=== PATIENT | female | born 1935 | race Caucasian/White ===

== ENCOUNTER → 2017-12-16 | Outpatient (CLI) | payer MEDICARE, BC ==
[~2017-12-16] MED LIST: ACETAMINOPHEN-1 EAC1 PO; ASPIR 8181 MG PO; COLESTID1 GM PO; LEVOTHYROXINE100 MC1 PO; MACULAR HEALTH1 EACH PO; MIDODRINE HCL 55 M1 PO; PROPAFENONE 15150 MG PO; PROTONIX40 M1 PO; RANEXA500 MG PO; ROPINIROLE HCL2 M1 PO; SYNTHROID100 MC1 PO; TRAMADOL 50 MG50 MG PO
[2017-12-16 13:01] LABS: CREATININE 1.3 mg/dL (0.6-1.3)
== END ==
LOC: M.CT 12:24 → M.LAB 12:30 → M.CT 13:30
PROVIDERS: Family Medicine
DX: I67.82 Cerebral ischemia (principal); G31.9 Degenerative disease of nervous system, unspecified; E03.9 Hypothyroidism, unspecified; I10 Essential (primary) hypertension; Z90.49 Acquired absence of other specified parts of digestive tract

== ENCOUNTER 2018-01-02 10:31 | Inpatient (IN) | payer MEDICARE, BC ==
[~2018-01-02] VITALS: Ht 165.1 cm; Wt 74.4 kg
[~2018-01-02 10:31] MED LIST changes: -COLESTID1 GM PO; -MACULAR HEALTH1 EACH PO; -RANEXA500 MG PO
[2018-01-02 10:39] VITALS: BP 133/80
[2018-01-02] MEDS ORDERED: MACULAR HEALTH1 EACH PO (10:48)
[2018-01-02 11:18] LABS: ABSOLUTE EOSINOPHILS 0.1 thou/uL (0.0-0.7); ABSOLUTE LYMPHOCYTES 1.1 thou/uL (0.8-5.3); ABSOLUTE MONOCYTES 0.5 thou/uL (0.0-1.2); BASOPHILS 0.3 %; EOSINOPHILS 1.3 %; HEMATOCRIT 32.2 % (37.0-47.0); HEMOGLOBIN 11.1 gm/dL (12.0-15.0); LYMPHOCYTES 23.3 %; MCHC 34.3 g/dL (28.0-37.0); MCV 93.3 fL (80.0-100.0); MONOCYTES 9.9 %; MPV 6.8 fl. (7.2-11.1); NUCLEATED RBCS 0 /100WBC; PLATELET COUNT* 222 thou/uL (150-400); POLYS 65.2 %; RBC 3.45 mil/uL (4.20-5.00); RDW-CV 14.6 % (10.5-14.5); WBC 4.6 thou/uL (4.0-11.0)
[2018-01-02 11:26] LABS: CREATININE 1.3 mg/dL (0.6-1.3); POTASSIUM 4.3 mmol/L (3.5-5.1)
[2018-01-02 11:32] LABS: ALBUMIN 3.6 g/dL (3.4-5.0); TOTAL BILIRUBIN 0.4 mg/dL (<0.1-1.0); TOTAL PROTEIN 6.9 g/dL (6.4-8.2)
[2018-01-02 13:56] VITALS: BP 133/80
[2018-01-02 14:11] VITALS: BP 166/64
[2018-01-02 16:30] VITALS: BP 101/77
[2018-01-02 19:30] VITALS: BP 158/54
[2018-01-03 05:38] LABS: CALCIUM 8.4 mg/dL (8.5-10.1); CREATININE 1.3 mg/dL (0.6-1.3); POTASSIUM 4.2 mmol/L (3.5-5.1)
[2018-01-03 05:44] LABS: ABSOLUTE EOSINOPHILS 0.1 thou/uL (0.0-0.7); ABSOLUTE LYMPHOCYTES 1.3 thou/uL (0.8-5.3); ABSOLUTE MONOCYTES 0.5 thou/uL (0.0-1.2); ABSOLUTE NEUTROPHILS 1.9 thou/uL (1.6-8.1); BASOPHILS 0.3 %; EOSINOPHILS 1.8 %; HEMATOCRIT 29.3 % (37.0-47.0); HEMOGLOBIN 10.2 gm/dL (12.0-15.0); LYMPHOCYTES 35.2 %; MCHC 34.7 g/dL (28.0-37.0); MCV 92.4 fL (80.0-100.0); MONOCYTES 12.2 %; MPV 7.8 fl. (7.2-11.1); NUCLEATED RBCS 0 /100WBC; PLATELET COUNT* 202 thou/uL (150-400); POLYS 50.5 %; RBC 3.18 mil/uL (4.20-5.00); RDW-CV 15.1 % (10.5-14.5); WBC 3.7 thou/uL (4.0-11.0)
[2018-01-03 07:30] VITALS: BP 117/39
--- NOTE | 2018-01-03 15:10 | EKG ---
[place] [address] ELECTROCARDIOGRAM REPORT Name: ANNIE SILVEIRA Room: [address] ADM IN M.R.#: [id number] Admission: 01/02/18 Attend Phys: Perez Hamilton MD Discharge: Date of : 35 Report #: [id number] THIS REPORT FOR: //name// [facility] Test Date: 2018-01-03 Test Time: 13:45:15 Pat Name: ANNIE SILVEIRA Department: Room: [address] Gender: F Supervisor Dock: ANTHONY : 1935 Requested By: oBn Bates Order Number: [id number] Reading MD: Jani Whitten Measurements Intervals [place] Rate: 67 P: 74 [place]: 198 QRS: -22 QRSD: 118 T: 76 QT: 423 QTc: 447 Interpretive Statements Sinus rhythm Atrial premature complex Probable left ventricular hypertrophy Baseline wander in lead(s) V1 Compared to ECG 06/29/2017 10:42:41 Atrial premature complex(es) now present Ventricular premature complex(es) no longer present Intraventricular conduction delay no longer present Electronically Signed On 01-03-2018 15:10:07 CDT by Jani Whitten [email or web address] <ELECTRONICALLY SIGNED> By: Jani Whitten MD, FACC 01/03/18 1510 1345 1345 Jani Whitten MD, FACC /EPI
[2018-01-03 16:00] VITALS: BP 161/65
[2018-01-03 20:00] VITALS: BP 134/54
[2018-01-04 04:52] LABS: ABSOLUTE LYMPHOCYTES 0.9 thou/uL (0.8-5.3); ABSOLUTE MONOCYTES 0.3 thou/uL (0.0-1.2); ABSOLUTE NEUTROPHILS 1.7 thou/uL (1.6-8.1); BASOPHILS 0.3 %; EOSINOPHILS 1.4 %; HEMATOCRIT 27.3 % (37.0-47.0); HEMOGLOBIN 9.4 gm/dL (12.0-15.0); LYMPHOCYTES 29.9 %; MCHC 34.6 g/dL (28.0-37.0); MCV 92.4 fL (80.0-100.0); MONOCYTES 11.3 %; MPV 7.6 fl. (7.2-11.1); NUCLEATED RBCS 0 /100WBC; PLATELET COUNT* 162 thou/uL (150-400); POLYS 57.1 %; RBC 2.95 mil/uL (4.20-5.00); RDW-CV 14.6 % (10.5-14.5)
[2018-01-04 04:54] LABS: CREATININE 1.1 mg/dL (0.6-1.3); POTASSIUM 3.5 mmol/L (3.5-5.1)
[2018-01-04 06:32] VITALS: BP 163/62
[2018-01-04 07:50] VITALS: BP 146/68
--- NOTE | 2018-01-04 10:02 | EKG ---
[place] [address] ELECTROCARDIOGRAM REPORT Name: ANNIE SILVEIRA Room: [address] ADM IN M.R.#: [id number] Admission: 01/02/18 Attend Phys: Perez Hamilton MD Discharge: Date of : 35 Report #: [id number] THIS REPORT FOR: //name// [facility] Test Date: 2018-01-04 Test Time: 06:28:55 Pat Name: ANNIE SILVEIRA Department: Room: [address] Gender: F Powertrain Design Engineer: SERENA : 1935 Requested By: Clint Bertrand Order Number: [id number] Reading MD: Sudhakar Pinzon Measurements Intervals [place] Rate: 55 P: 68 [place]: 198 QRS: -20 QRSD: 116 T: 80 QT: 457 QTc: 438 Interpretive Statements Sinus bradycardia Nonspecific intraventricular conduction delay Probable anteroseptal infarct, old Nonspecific T abnormalities, lateral leads Compared to ECG 01/03/2018 13:45:15 Atrial premature complex(es) no longer present Electronically Signed On 01-04-2018 10:02:07 CDT by Sudhakar Pinzon [email or web address] <ELECTRONICALLY SIGNED> By: Sudhakar Pinzon MD, FACC 01/04/18 1002 0628 0628 Sudhakar Pinzon MD, [facility] /EPI
[2018-01-04 10:48] VITALS: BP 146/68
[2018-01-04 11:29] VITALS: BP 188/83
[2018-01-04 15:10] VITALS: BP 167/60
[2018-01-04 21:24] VITALS: BP 152/68
[2018-01-05 09:34] VITALS: BP 168/73
[2018-01-05 13:59] VITALS: BP 168/73
[2018-01-05] MEDS ORDERED: COLESTID1 GM PO (14:06)
--- NOTE | 2018-01-07 14:24 | CON ---
[address] [address] CONSULTATION Name: ANNIE SILVEIRA Room: [address] IN M.R.#: [id number] Admission: 01/02/18 Attend Phys: Perez Hamilton MD Discharge: 01/05/18 Date of : 35 Report #: [id number] THIS REPORT FOR: //name// CC: Perez Hester DO DICTATED BY: Sandi Palomino [facility] DATE OF SERVICE: 01/03/2018 Please note at the time of this dictation, the patient was seen and physically examined by myself. REASON FOR CONSULTATION: Possible GI bleed, melanotic stools. HISTORY OF PRESENT ILLNESS: This is an 82-year-old female who presented to the Emergency Room complaining that she has had some black stools for the last 2 weeks. However, the patient does take an iron supplement on a weekly basis and has been taking occasional Pepto-Bismol as well. She was told that if she had dark stools that she needed to come to the Emergency Room; however, they have not changed in consistency or she has not noticed having to empty her ostomy more frequently as well. She denies any nausea or vomiting or any abdominal pain. She states she has had subjective fever and chills. The patient was last seen by us in the hospital back in June when she had a plum pit that she swallowed and was removed by Dr. Gong via her ileostomy. When obtaining the occult blood earlier yesterday, they obtained it from her ostomy site and rubbing over her stoma which turned out to be positive. We will obtain another specimen. The patient denies any nausea or vomiting or any other issues at this time. She denies taking any NSAIDs at the present time. ALLERGIES: No known drug allergies. MEDICATIONS: From home include [employer] combo pack, midodrine, Synthroid, Robinul, propafenone and aspirin. PAST MEDICAL HISTORY: Restless leg, irregular heart rate, hypothyroidism. 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 FAMILY HISTORY: Noncontributory. SOCIAL HISTORY: Denies any alcohol, tobacco or illegal drug use. REVIEW OF SYSTEMS: Twelve-point review of systems is essentially negative except what [place] [address] CONSULTATION Name: ANNIE SILVEIRA Room: [address] IN [facility]#: [id number] Admission: 01/02/18 Attend Phys: Perez Hamilton MD Discharge: 01/05/18 Date of : 35 Report #: [id number] PHYSICAL EXAMINATION: VITAL SIGNS: Temperature 37.2, pulse 69, respirations 16, blood pressure 117/39. HEART: Regular rate and rhythm. LUNGS: Clear. ABDOMEN: Soft, positive bowel sounds in all 4 quadrants with no masses or tenderness noted. Ileostomy noted in the right lower quadrant area. Ostomy site appears to be a little irritated. LABORATORY DATA: Hemoglobin is 10.2 on admission, she was 11.1. It is noted trending that she bounces between 10 and 11 most of the time, hematocrit is 29.3, white count is 3.7, platelets are 202. Sodium 142, potassium 4.2, chloride 110, CO2 of 25, BUN is 13, creatinine is 1.3, GFR is 39 and glucose is 93. CT of the abdomen and pelvis was essentially negative that just showed the right-sided ileostomy and a previous cholecystectomy. IMPRESSION: 1. Melanotic stool. 2. Anemia. 3. Ostomy malfunction. PLAN: 1. We will have the ostomy nurse come to see the patient. 2. We will obtain occult from her stool and not from her stoma site. 3. Discontinue her Protonix drip and switch to oral. 4. Consider EGD tomorrow and n.p.o. after 6:00 a.m. Thank you for allowing us to participate in this patient's care. Please do not hesitate to call with any questions in regard to this consult. ADDENDUM: I have personally seen and examined the patient and reviewed labs and imaging studies. The patient reports that for the past 2 weeks her output has been dark in color and her neighbor, who is a nurse, suggested that she may have blood in there. Her hemoglobin has been stable between 10 and 11 compared to the past. Looking at her ostomy bag, there is a lot of bile in the bag. She was started on Protonix drip in the ER, which we recommend to discontinue. We will consider upper endoscopy if her hemoglobin drops. The patient is agreeable with the plan. If her output is too much, we may consider a bile sequestering agent. <ELECTRONICALLY SIGNED> By: Sukhdeep Gong DO 01/07/18 1424 1222 1248Sukhdeep Gong DO /nt
--- NOTE | 2018-01-09 15:07 | CON ---
[address] [address] CONSULTATION Name: ANNIE SILVEIRA Room: [address] IN M.R.#: [id number] Admission: 01/02/18 Attend Phys: Perez Hamilton MD Discharge: 01/05/18 Date of : 35 Report #: [id number] THIS REPORT FOR: //name// CC: Perez Hamilton [facility] DATE OF SERVICE: 01/03/2018 ADDENDUM: I have personally seen and examined the patient and reviewed labs and imaging studies. The patient reports that for the past 2 weeks her output has been dark in color and her neighbor, who is a nurse, suggested that she may have blood in there. Her hemoglobin has been stable between 10 and 11 compared to the past. Looking at her ostomy bag, there is a lot of bile in the bag. She was started on Protonix drip in the ER, which we recommend to discontinue. We will consider upper endoscopy if her hemoglobin drops. The patient is agreeable with the plan. If her output is too much, we may consider a bile sequestering agent. <ELECTRONICALLY SIGNED> By: Bon Bates MD 01/09/18 1507 1511 1537Farpatience Bates MD /nt
== END 2018-01-05 17:15 | disposition home or self-care (01) | DRG 393 ==
LOC: M.ERS 10:31 → M.TBA-ER 12:16 → M.3W 12:16
PROVIDERS: Emergency Medicine Emergency Medical Services; ADMIT Internal Medicine
PROC: 0DJ08ZZ Inspection of Upper Intestinal Tract, Via Natural or Artificial Opening Endoscopic (ICD-10-PCS; principal; 2018-01-02)
DX: K94.03 Colostomy malfunction (principal); K29.01 Acute gastritis with bleeding; K56.600 Partial intestinal obstruction, unspecified as to cause; G25.81 Restless legs syndrome; E03.9 Hypothyroidism, unspecified; D64.9 Anemia, unspecified

== ENCOUNTER → 2018-07-19 | Outpatient (CLI) | payer MEDICARE, BC ==
[~2018-07-19] MED LIST changes: +COLESTID1 GM PO; +MACULAR HEALTH1 EACH PO
== END ==
LOC: M.RAD 11:37
DX: Z12.31 Encounter for screening mammogram for malignant neoplasm of breast (principal)

== ENCOUNTER 2018-08-31 19:13 | Inpatient (IN) | payer MEDICARE, BC ==
[~2018-08-31] VITALS: Ht 165.1 cm; Wt 67.6 kg
[2018-08-31 19:30] VITALS: BP 148/52
[2018-08-31 19:33] LABS: ABSOLUTE EOSINOPHILS 0.3 thou/uL (0.0-0.7); ABSOLUTE LYMPHOCYTES 1.3 thou/uL (0.8-5.3); ABSOLUTE MONOCYTES 0.6 thou/uL (0.0-1.2); ABSOLUTE NEUTROPHILS 3.8 thou/uL (1.6-8.1); BASOPHILS 0.3 %; EOSINOPHILS 4.8 %; HEMATOCRIT 35.1 % (37.0-47.0); HEMOGLOBIN 11.8 gm/dL (12.0-15.0); MCH 31.8 pg (26.0-34.0); MCHC 33.5 g/dL (28.0-37.0); MCV 94.9 fL (80.0-100.0); MONOCYTES 9.4 %; MPV 7.5 fl. (7.2-11.1); NUCLEATED RBCS 0 /100WBC; PLATELET COUNT* 210 thou/uL (150-400); POLYS 63.5 %; RDW-CV 13.6 % (10.5-14.5); WBC 6.1 thou/uL (4.0-11.0)
[2018-08-31] MEDS ORDERED: RANEXA500 MG PO (19:35)
[2018-08-31 19:42] LABS: ANION GAP 8 mmol/L (7-16); BUN 24 mg/dL (7-18); CALCIUM 8.9 mg/dL (8.5-10.1); CHLORIDE 103 mmol/L (98-107); CO2 27 mmol/L (21-32); CREATININE 1.4 mg/dL (0.6-1.3); GLUCOSE 101 mg/dL (70-99); POTASSIUM 4.3 mmol/L (3.5-5.1); SODIUM 138 mmol/L (136-145)
[2018-08-31 19:44] LABS: APTT 25.2 Seconds (25.0-31.3); PROTIME 9.8 Seconds (9.20-11.50)
[2018-08-31 20:01] LABS: ALBUMIN 3.7 g/dL (3.4-5.0); ALKALINE PHOSPHATASE 82 U/L (46-116); CK-MB MASS 4.5 ng/mL (<0.5-3.6); LIPASE 297 U/L (73-393); MAGNESIUM 2.3 mg/dL (1.8-2.4); NT-PRO BRAIN NAT PEPTIDE 348 pg/mL (<300); SGOT 24 U/L (15-37); SGPT 24 U/L (30-65); TOTAL BILIRUBIN 0.3 mg/dL (<0.1-1.0); TOTAL PROTEIN 6.8 g/dL (6.4-8.2); TROPONIN-I LEVEL <0.06 ng/mL (<0.06)
[2018-08-31 21:06] VITALS: BP 131/52
[2018-08-31 21:35] VITALS: BP 146/48
[2018-09-01] VITALS (7 sets, daily range): BP systolic 122–155; BP diastolic 50–78
--- NOTE | 2018-09-01 05:17 | NUR ---
PT ARRIVED FROM ER AT AROUND 2245. ASSESSMENT COMPLETED CHARTED. ABLE TO MAKE NEEDS KNOWN. UP WITH STANDBY. NO C/O PAIN OR DISCOMFORT. PT NPO FOR CARDIOLOGY CONSULT TODAY. PT SLIGHTLY CONFUSED. WILL CONTINUE TO MONITOR.
--- NOTE | 2018-09-01 08:37 | NUR ---
ASSUMED CARE OF PT AT 0730. PT RESTING IN BED. PT A&0X3, FORGETFUL AND CONFUSED AT TIMES. PT DENIES ANY PAIN CURRENTLY BUT STATES CHEST PAIN COMES AND GOES INTERMITTENTLY LIKE A QUICK SHOCK AND THEN GONE. PT TRACING SR ON THE MAINTAINER SEWER AND WATERWORKS. ON RA SAT 94%. DENIES ANY SHORTNESS OF BREATH. ILEOTSTOMY TO DEPENDET DRAINAGE. PT UP SBA TO BATHROOM. PT NPO AT THIS TIME FOR CARDIOLOGY CONSULT. PT GOAL FOR TODAY IS TO REMAIN FREE FROM CHEST PAIN AND CARDIOLOGY WORK UP. AM ASSESSMENT CHARTED. MEDICATIONS PER DEC. PT REPOSITIONS SELF. HOURLY ROUNDING OBSERVED. BED IN LOW POSITION. CALL LIGHT WITHIN REACH. WILL CONTINUE PLAN OF CARE.
--- NOTE | 2018-09-01 11:10 | NUR ---
MET WITH PT TO DISCUSS HOME SITUATION/DC PLANNING. PT LIVES ALONE, IS INDEPENDENT AND ACTIVE. USES CANE AND WALKER PRN, HAS ROLLATER ALSO. PT DRIVES. SHE DENIES ANY DC NEEDS.
--- NOTE | 2018-09-01 12:25 | EKG ---
[place] [address] ELECTROCARDIOGRAM REPORT Name: ANNIE SILVEIRA Room: [facility] ADM IN M.R.#: [id number] Admission: 08/31/18 Attend Phys: Clint Bertrand MD Discharge: Date of : 35 Report #: [id number] THIS REPORT FOR: //name// [facility] ED Test Date: 2018-08-31 Test Time: 19:18:29 Pat Name: ANNIE SILVEIRA Department: Room: [facility] Gender: F Research Physician: [facility] : 1935 Requested By: Harley Hurst Order Number: [id number] MD: Sudhakar Pinzon Measurements Intervals [place] Rate: 75 P: 61 RI: 207 QRS: -29 QRSD: 121 T: 81 QT: 406 QTc: 454 Interpretive Statements Sinus rhythm Ventricular premature complex Nonspecific intraventricular conduction delay Baseline wander in lead(s) V1,V5 Compared to ECG 01/04/2018 06:28:55 Ventricular premature complex(es) now present Sinus bradycardia no longer present Myocardial infarct finding no longer present T-wave abnormality no longer present Electronically Signed On 09-01-2018 12:25:46 IMAGER by Sudhakar Pinzon [email or web address] <ELECTRONICALLY SIGNED> By: Sudhakar Pinzon MD, FACC 09/01/18 1225 17 17 Sudhakar Pinzon MD, FACC /EPI
--- NOTE | 2018-09-01 12:27 | EKG ---
[place] [address] ELECTROCARDIOGRAM REPORT Name: ANNIE SILVEIRA Room: [place] [address] ADM IN .R.#: [id number] Admission: 08/31/18 Attend Phys: Clint Bertrand MD Discharge: Date of : 35 Report #: [id number] THIS REPORT FOR: //name// [facility] Test Date: 2018-09-01 Test Time: 00:01:57 Pat Name: ANNIE SILVEIRA Department: Room: [place] [address] Gender: F Quality Assurance Calibrator: RUSS : 1935 Requested By: Harley Hurst Order Number: [id number] Reading MD: Sudhakar Pinzon Measurements Intervals [place] Rate: 67 P: 56 [place]: 208 QRS: -18 QRSD: 117 T: 86 QT: 408 QTc: 431 Interpretive Statements Sinus rhythm Consider anterior infarct Electronically Signed On 09-01-2018 12:27:12 CAMPUS INTERVIEWS INTERN by Sudhakar Pinzon [email or web address] <ELECTRONICALLY SIGNED> By: Sudhakar Pinzon MD, [facility] 09/01/18 [address] [facility] Sudhakar Pinzon MD, FACC /EPI
--- NOTE | 2018-09-01 12:29 | EKG ---
[place] [address] ELECTROCARDIOGRAM REPORT Name: ANNIE SILVEIRA Room: [place] [address] ADM IN .R.#: [id number] Admission: 08/31/18 Attend Phys: Clint Bertrand MD Discharge: Date of : 35 Report #: [id number] THIS REPORT FOR: //name// [facility] Test Date: 2018-09-01 Test Time: 07:02:55 Pat Name: ANNIE SILVEIRA Department: Room: [place] [address] Gender: F Kick Boxer: RUSS : 1935 Requested By: Harley Hurst Order Number: [id number] Chaparro MD: Sudhakar Pinzon Measurements Intervals [place] Rate: 60 P: 64 SC: 188 QRS: -17 QRSD: 115 T: 90 QT: 427 QTc: 427 Interpretive Statements Sinus rhythm Nonspecific intraventricular conduction delay Consider anterior infarct Electronically Signed On 09-01-2018 12:29:00 BUSINESS RECORDS MANAGER by Sudhakar Pinzon [email or web address] <ELECTRONICALLY SIGNED> By: Sudhakar Pinzon MD, [facility] 09/01/18 1229 0702 0702 Sudhakar Pinzon MD, FACC /EPI
--- NOTE | 2018-09-01 17:14 | EXE ---
[place] [address] STRESS ECHOCARDIOGRAM Name: ANNIE SILVEIRA Room: [facility] IN ..#: [id number] Admission: 08/31/18 Attend Phys: Clint Bertrand, Discharge: Date of : 35 Date of Service: 09/01/18 1714 Report #: [id number] THIS REPORT FOR: //name// APPROVED REPORT Study performed: 09/01/2018 15:51:55 Exam: Dobutamine Stress Echo Indication: Chest pain Patient Location: In-Patient Stress Nurse: Milady Wang RN Room #: [facility] Supervising Physician: Sudhakar Pinzon MD Status: routine Ht: 5 ft 5 in HR: 66 bpm BP: 146/72 mmHg Rhythm: NSR Procedure The patient underwent a Pharmacological Stress Test using Dobutamine. Blood pressure, heart rate, and EKG were monitored. An Echocardiogram was performed by emission technician in four stages in quad fashion. At peak stress, four selected images were obtained and placed side by side with resting images for comparison. Stress Test Details Stress Test: Pharmacological Stress Test using Dobutamine. HR Resting HR: 66 bpm Max Heart Rate (APMHR): 138 bpm Max HR Achieved: 120 bpm Target HR (85% APMHR): 117 bpm % of APMHR: 86 Recovery HR: 69 bpm HR response to stress: Normal HR response to stress BP Resting BP: 146/72 mmHg Max BP: 165/69 mmHg Recovery BP: 153/78 mmHg BP response to stress: Normal blood pressure response to stress. ECG Resting ECG: Sinus Rhythm Stress ECG: Sinus Rhythm, nons[place] [address] STRESS ECHOCARDIOGRAM Name: ANNIE SILVEIRA Room: [address] IN [facility]#: [id number] Admission: 08/31/18 Attend Phys: Clint Bertrand, Discharge: Date of : 35 Date of Service: 09/01/18 1714 Report #: [id number] ST Change: Upsloping ST depression Maximum ST Deviation: 0.5 mm Arrhythmia: VPC's Recovery ECG: Sinus Rhythm, nonspecific ST-T abnormalities Recovery ST Change: Upsloping ST depression Recovery ST Deviation: 0.5 mm Recovery Arrhythmia: None Clinical Reason for Termination: Completed protocol Pre-Stress Echo The resting Echocardiogram showed normal left ventricular contractility with an estimated Ejection Fraction of about 55-60%. Post-Stress Echo The stress Echocardiogram showed normal left ventricular contractility with an estimated Ejection Fraction of about 65-70%. Conclusion Clinical Response: Non-ischemic Stress ECG Response: Equivocal Stress Echo Images: Non-ischemic low risk stress echo for future cardiac events Other Information Study Quality: Good <Conclusion> low risk stress echo for future cardiac events <ELECTRONICALLY SIGNED> By: Sudhakar Pinzon MD, FACC 09/01/181713 13 13 Sudhakar Pinzon MD, FACC /INF
--- NOTE | 2018-09-01 18:46 | NUR ---
DISCHARGE ORDERS RECEIVED. DISCHARGE INSTRUCTIONS, CARE NOTES AND FOLLOW UP APPTS GIVEN TO PT. PT COMMUNICATES UNDERSTANDING OF DISCHARGE TEACHING. IV AND HOME IMPROVEMENT INSTALLER REMOVED. PT DISCHARGED WITH ALL BELONGINGS AND PAPERWORK VIA WHEELCHAIR WITH NURSING STAFF TO SONS OWN PERSONAL VEHICLE.
--- NOTE | 2018-09-02 10:37 | CON ---
[address] [address] CONSULTATION Name: ANNIE SILVEIRA Room: [address] IN M.R.#: [id number] Admission: 08/31/18 Attend Phys: Clint Bertrand MD Discharge: 09/01/18 Date of : 35 Report #: [id number] THIS REPORT FOR: //name// CC: Alexis Chna DATE OF SERVICE: 09/01/2018 CARDIOLOGY CONSULTATION HISTORY OF PRESENT ILLNESS: The patient is an 82-year-old single white female who I was asked to see in the hospital today after she complained of chest pain. The history is obtained from the patient as well as some old records. The patient has a history of ulcerative colitis and has a previous colectomy and ileostomy in place. She is not very active because of her age. She currently is followed by Dr. Rincon with the cardiology service at [place]. She has a history of orthostatic hypotension and has been on midodrine. She has a history of atrial fibrillation and has been on Rythmol. She has a history of chest pain and has been on Ranexa. She apparently has had a heart catheterization in the past showing no significant coronary artery disease. She had a stress echocardiogram in 2016 suggesting inferior ischemia, but medical therapy was recommended. The patient did have an echocardiogram in 2015 that showed ejection fraction of 60%. She had a dobutamine stress echo in March 2016 that showed inferior wall hypokinesis. The patient states she is not very active. Yesterday, she was at home when she felt some tightness in her chest, within her jaw. She denies any shortness of breath, diaphoresis or nausea. It lasted about 30 minutes. Her son brought to the Emergency Room and she was admitted. She denied the pain being related to food. She had no belching episode. Denies any recent fever, cough or bleeding. She denied trauma to her chest or rash. She denies exertional dyspnea, palpitations or syncope. PAST MEDICAL HISTORY: Otherwise, she has had previous cholecystectomy, cataract extraction, hip surgery, knee surgery. She has a history of orthostatic hypotension. No history of hypertension. No history of diabetes or hyperlipidemia. MEDICATIONS: Consists of Synthroid, ropinirole, aspirin, midodrine, Rythmol, colestipol, Ranexa. ALLERGIES: SHE HAS AN INTOLERANCE TO MORPHINE. FAMILY HISTORY: No history of heart disease. SOCIAL HISTORY: She is , lives in [place]. No [place] [address] CONSULTATION Name: ANNIE SILVEIRA Room: [address]#: [id number] Admission: 08/31/18 Attend Phys: Clint Bertrand MD Discharge: 09/01/18 Date of : 35 Report #: [id number] REVIEW OF SYSTEMS: She has had no history of stroke or asthma. She had a lot of indigestion. No kidney disease, no cancer. No psychiatric illness. PHYSICAL EXAMINATION: GENERAL: Revealed an elderly frail appearing female, lying in bed. She appeared in no acute distress. VITAL SIGNS: She had a blood pressure of 140/60, pulse 60. She is afebrile. HEENT: She was anicteric, conjunctivae pink. Mucous membranes are dry. NECK: Neck veins do not appear distended. No carotid bruits. Neck is supple. CHEST: Clear to auscultation. CARDIOVASCULAR: Regular rate and rhythm. No gallop or murmur. ABDOMEN: Soft. EXTREMITIES: Had no edema. Dorsalis pedis pulse 1+ bilaterally. SKIN: Warm, dry. NEUROLOGIC: Nonfocal. Her ECG when she came to the Emergency Room yesterday afternoon showed a sinus rhythm, occasional PVC, nonspecific ST-segment changes. Last night, she remained in sinus rhythm. Her workup, she had a chest x-ray that showed tortuous aorta, clear lung ling. She had a VQ scan of the lungs that was low probability for pulmonary embolus. Previous CT scan of the head in December showed atrophy, small vessel changes. LABORATORY DATA: Sodium 138, BUN 24, creatinine 1.4. Liver function studies were normal. Troponins all 0.06. White blood cell count 6.1, hemoglobin 11.8. IMPRESSION AND RECOMMENDATIONS: 1. Chest pain. Atypical for angina. No evidence of acute myocardial infarction. Recommend dobutamine stress echo. 2. History of orthostatic hypotension. The patient is on midodrine. 3. History of atrial fibrillation. The patient on Rythmol. 4. Ulcerative colitis. The patient has a colostomy placed. 5. Chronic kidney disease. <ELECTRONICALLY SIGNED> By: Sudhakar Pinzon MD, FACC 09/02/18 1037 0949 0003David Larry Pinzon MD, FACC /nt
== END 2018-09-01 18:47 | disposition home or self-care (01) | DRG 555 ==
LOC: M.ERS 19:13 → M.2W 20:18 → M.TBA-ER 20:18 → M.2W 21:06
PROVIDERS: Family Medicine; ADMIT Internal Medicine
DX: M79.18 Myalgia, other site (principal); N17.0 Acute kidney failure with tubular necrosis; K51.90 Ulcerative colitis, unspecified, without complications; I48.91 Unspecified atrial fibrillation; I20.8 Other forms of angina pectoris; N18.9 Chronic kidney disease, unspecified; E03.9 Hypothyroidism, unspecified; G25.81 Restless legs syndrome; Z93.2 Ileostomy status; Z88.6 Allergy status to analgesic agent; Z90.49 Acquired absence of other specified parts of digestive tract; Z98.49 Cataract extraction status, unspecified eye; Z28.21 Immunization not carried out because of patient refusal; Z79.899 Other long term (current) drug therapy

== ENCOUNTER 2019-08-10 16:27 | Emergency (ER) | payer MEDICARE, BC ==
[~2019-08-10] VITALS: Ht 165.1 cm; Wt 69.0 kg
[~2019-08-10 16:27] MED LIST changes: +RANEXA500 MG PO
[2019-08-10 17:39] LABS: URINE BILIRUBIN NEGATIVE (Negative); URINE BLOOD NEGATIVE (Negative); URINE CLARITY CLEAR; URINE COLOR YELLOW; URINE GLUCOSE-RANDOM NEGATIVE (Negative); URINE KETONES NEGATIVE (Negative); URINE LEUKOCYTES-REFLEX NEGATIVE (Negative); URINE NITRITE-REFLEX NEGATIVE (Negative); URINE PROTEIN NEGATIVE (Negative); URINE SPECIFIC GRAVITY 1.025 (1.005-1.030); URINE UROBILINOGEN 0.2 E.U./dl (0.2-1.0)
[2019-08-10] MEDS ORDERED: ULTRAM50 MG PO (17:50)
[2019-08-10] MEDS ORDERED: NORCO 5-325 TA1 EAC1 PO (18:01)
[2019-08-10 18:06] VITALS: BP 176/63
== END 2019-08-10 18:06 | disposition home or self-care (01) ==
LOC: M.ERS 16:27
PROVIDERS: Emergency Medicine Emergency Medical Services
DX: M54.5 Low back pain (principal); M25.551 Pain in right hip; M25.552 Pain in left hip; G25.81 Restless legs syndrome; Z88.5 Allergy status to narcotic agent

== ENCOUNTER → 2019-08-13 | Outpatient (CLI) | payer MEDICARE, BC ==
[~2019-08-13] MED LIST changes: +NORCO 5-325 TA1 EAC1 PO; +ULTRAM50 MG PO
[2019-08-13 12:40] LABS: CREATININE 1.2 mg/dL (0.6-1.3)
[2019-08-13 13:50] LABS: ABSOLUTE EOSINOPHILS 0.1 thou/uL (0.0-0.7); ABSOLUTE LYMPHOCYTES 1.2 thou/uL (0.8-5.3); ABSOLUTE MONOCYTES 0.4 thou/uL (0.0-1.2); ABSOLUTE NEUTROPHILS 2.6 thou/uL (1.6-8.1); BASOPHILS 0.3 %; EOSINOPHILS 2.2 %; HEMATOCRIT 34.9 % (37.0-47.0); HEMOGLOBIN 11.9 gm/dL (12.0-15.0); LYMPHOCYTES 28.1 %; MCH 31.7 pg (26.0-34.0); MCHC 34.2 g/dL (28.0-37.0); MCV 92.5 fL (80.0-100.0); MONOCYTES 9.1 %; NUCLEATED RBCS 0 /100WBC; PLATELET COUNT* 200 thou/uL (150-400); POLYS 60.3 %; RBC 3.77 mil/uL (4.20-5.00); RDW-CV 13.6 % (10.5-14.5); WBC 4.3 thou/uL (4.0-11.0)
[2019-08-13 14:08] LABS: ALBUMIN 3.6 g/dL (3.4-5.0); ALKALINE PHOSPHATASE 85 U/L (46-116); ANION GAP 8 mmol/L (7-16); BUN 22 mg/dL (7-18); CALCIUM 8.9 mg/dL (8.5-10.1); CHLORIDE 107 mmol/L (98-107); CO2 25 mmol/L (21-32); GLUCOSE 120 mg/dL (70-99); POTASSIUM 3.9 mmol/L (3.5-5.1); SGOT 25 U/L (15-37); SGPT 32 U/L (30-65); SODIUM 140 mmol/L (136-145); TOTAL BILIRUBIN 0.2 mg/dL (<0.1-1.0)
== END ==
LOC: M.CT 08-08 13:15
PROVIDERS: Nurse Practitioner Family
DX: N28.1 Cyst of kidney, acquired (principal); M43.8X4 Other specified deforming dorsopathies, thoracic region

== ENCOUNTER 2021-10-17 09:12 | Inpatient (IN) | payer MEDICARE, BC ==
[~2021-10-17] VITALS: Ht 162.6 cm; Wt 62.6 kg
[2021-10-17 09:16] VITALS: BP 115/84
[2021-10-17] MEDS ORDERED: BIOFREEZE118 ML TOP ×2 (09:24→09:46)
[2021-10-17] MEDS ORDERED: FUROSEMIDE 20 M20 MG PO (09:25)
[2021-10-17] MEDS ORDERED: METHOCARBAMOL750 MG PO ×2 (09:26→09:46)
[2021-10-17] MEDS ORDERED: FUROSEMIDE 20 M20 M1 PO (09:45)
[2021-10-17] MEDS ORDERED: HYDROCODON-ACE1 EAC7 PO (09:45)
[2021-10-17] MEDS ORDERED: ONDANSETRON ODT8 MG PO (09:46)
[2021-10-17] MEDS ORDERED: EFFER-K 20 MEQ20 ME1 PO (09:46)
[2021-10-17] MEDS ORDERED: PROPAFENONE 15150 MG PO (09:47)
[2021-10-17] MEDS ORDERED: PROTONIX40 M2 PO (09:47)
[2021-10-17] MEDS ORDERED: FLOMAX0.4 MG PO (09:48)
[2021-10-17] MEDS ORDERED: VITAMIN B-121000 MC2 SUBLING (09:48)
[2021-10-17] MEDS ORDERED: VITAMIN D350 MCG PO (09:48)
[2021-10-17] MEDS ORDERED: RETACRIT10000 UNIT SUBQ (09:48)
[2021-10-17] MEDS ORDERED: EYE MULTIVITAM1 EAC1 PO (09:49)
[2021-10-17] MEDS ORDERED: ACETAMINOPHEN PO (09:49)
[2021-10-17] MEDS ORDERED: FOLIC ACID1 MG PO (09:50)
[2021-10-17] MEDS ORDERED: LEVOTHYROXINE125 MC1 PO (09:50)
[2021-10-17] MEDS ORDERED: NEURONTIN100 MG PO (09:50)
[2021-10-17] MEDS ORDERED: FEOSOL325 M1 PO (09:50)
[2021-10-17] MEDS ORDERED: LORATIDINE 10 M10 M1 PO (09:51)
[2021-10-17] MEDS ORDERED: NAMENDA 10 MG T10 MG PO (09:51)
[2021-10-17] MEDS ORDERED: MELATONIN3 M1 PO (09:51)
[2021-10-17] MEDS ORDERED: XANAX 0.25 MG0.25 MG PO (09:51)
[2021-10-17] MEDS ORDERED: NORVASC5 MG PO (09:51)
[2021-10-17] MEDS ORDERED: ASA81BEC PO (09:51)
[2021-10-17] MEDS ORDERED: CALCIUM500 MG PO (09:52)
[2021-10-17] MEDS ORDERED: ARICEPT10 M1 PO (09:52)
[2021-10-17] MEDS ORDERED: ENTOCORT EC 3 MG3 MG PO (09:52)
[2021-10-17] MEDS ORDERED: ELIQUIS2.5 MG PO (09:52)
[2021-10-17 10:28] LABS: ABSOLUTE LYMPHOCYTES 0.8 thou/uL (0.8-5.3); ABSOLUTE MONOCYTES 0.3 thou/uL (0.0-1.2); ABSOLUTE NEUTROPHILS 1.3 thou/uL (1.6-8.1); BASOPHILS 0.4 %; EOSINOPHILS 0.5 %; HEMATOCRIT 21.7 % (37.0-47.0); LYMPHOCYTES 31.1 %; MCH 29.4 pg (26.0-34.0); MCHC 31.4 g/dL (28.0-37.0); MCV 93.8 fL (80.0-100.0); MPV 7.1 fl. (7.2-11.1); NUCLEATED RBCS 0 /100WBC; PLATELET COUNT* 192 thou/uL (150-400); RBC 2.32 mil/uL (4.20-5.00); RDW-CV 16.6 % (10.5-14.5); WBC 2.4 thou/uL (4.0-11.0)
[2021-10-17 10:31] LABS: CALCIUM 7.9 mg/dL (8.5-10.1); CREATININE 2.5 mg/dL (0.6-1.3); POTASSIUM 4.3 mmol/L (3.5-5.1)
[2021-10-17 10:33] LABS: BE 0.1 mmol/L (-2 to +3); PCO2 41.3 mmHg (35.0-45.0); PO2 70.9 mmHg (75.0-100.0); pH 7.399 (7.340-7.450)
[2021-10-17 10:34] LABS: APTT 25.6 Seconds (25.0-31.3)
[2021-10-17 10:38] LABS: HEMOGLOBIN 6.8 gm/dL (12.0-15.0)
[2021-10-17 10:42] LABS: ALBUMIN 2.4 g/dL (3.4-5.0); TOTAL BILIRUBIN 0.2 mg/dL (<0.1-1.0); TOTAL PROTEIN 5.2 g/dL (6.4-8.2)
--- NOTE | 2021-10-17 12:16 | EKG ---
[place] [address] ELECTROCARDIOGRAM REPORT Name: ANNIE SILVEIRA Room: [place] [address] ADM IN ..#: [id number] Admission: 10/17/21 Attend Phys: John Maria Discharge: Date of : 35 Date of Service: 10/17/219[address] Report #: [id number] THIS REPORT FOR: //name// [facility] ED Test Date: 2021-10-17 Test Time: 09:19:33 Pat Name: ANNIE SILVEIRA Department: Room: [facility] Gender: F Tax Map Technician: : 1935 Requested By: Braeden Long Order Number: [id number] MD: Brigido Rider Measurements Intervals [place] Rate: 74 P: 57 [place]: 185 QRS: -29 QRSD: 117 T: 90 QT: 402 QTc: 446 Interpretive Statements Sinus rhythm Ventricular trigeminy Borderline intraventricular conduction delay compared to ECG 09/01/2018 07:02:55 Ventricular premature complex(es) now present Early repolarization now present Myocardial infarct finding no longer present Electronically Signed On 10-17-2021 12:16:05 APPLE PACKING HEADER by Brigido Rider [email or web address] <ELECTRONICALLY SIGNED> By: Brigido Rider MD, FACC 10/17/21 1216 8 8 Brigido Rider MD, FACC /EPI
--- NOTE | 2021-10-17 18:33 | NUR ---
PT SON NAME [facility] [phone]
[2021-10-17 18:40] VITALS: BP 142/58
--- NOTE | 2021-10-17 18:44 | NUR ---
SPOKE WITH DR. GORDON, GI WILL SEE PT TOMORROW
[2021-10-18 03:15] VITALS: BP 132/60
[2021-10-18 08:14] VITALS: BP 140/68
[2021-10-18 09:43] LABS: ABSOLUTE LYMPHOCYTES 1.1 thou/uL (0.8-5.3); ABSOLUTE MONOCYTES 0.3 thou/uL (0.0-1.2); ABSOLUTE NEUTROPHILS 1.5 thou/uL (1.6-8.1); BASOPHILS 0.1 %; HEMATOCRIT 29.6 % (37.0-47.0); MCH 29.7 pg (26.0-34.0); MCHC 31.8 g/dL (28.0-37.0); MCV 93.3 fL (80.0-100.0); MONOCYTES 10.9 %; MPV 6.6 fl. (7.2-11.1); NUCLEATED RBCS 0 /100WBC; PLATELET COUNT* 204 thou/uL (150-400); RBC 3.17 mil/uL (4.20-5.00); RDW-CV 16.2 % (10.5-14.5)
[2021-10-18 09:51] LABS: HEMOGLOBIN 9.4 gm/dL (12.0-15.0)
[2021-10-18 09:59] LABS: % SATURATION 22 % (20-39); IRON 65 ug/dL (50-175)
[2021-10-18 12:15] VITALS: BP 131/68
[2021-10-18 16:00] VITALS: BP 120/61
[2021-10-18 20:00] VITALS: BP 128/72
[2021-10-19 00:05] VITALS: BP 122/68
[2021-10-19 03:42] LABS: ABSOLUTE LYMPHOCYTES 1.5 thou/uL (0.8-5.3); ABSOLUTE MONOCYTES 0.3 thou/uL (0.0-1.2); ABSOLUTE NEUTROPHILS 2.1 thou/uL (1.6-8.1); BASOPHILS 0.1 %; HEMATOCRIT 28.1 % (37.0-47.0); MCH 29.6 pg (26.0-34.0); MCV 92.4 fL (80.0-100.0); MONOCYTES 8.4 %; MPV 6.4 fl. (7.2-11.1); NUCLEATED RBCS 0 /100WBC; PLATELET COUNT* 210 thou/uL (150-400); POLYS 53.5 %; RBC 3.04 mil/uL (4.20-5.00); RDW-CV 16.6 % (10.5-14.5); WBC 3.9 thou/uL (4.0-11.0)
[2021-10-19 04:12] LABS: ALBUMIN 2.3 g/dL (3.4-5.0); CALCIUM 7.7 mg/dL (8.5-10.1); CREATININE 1.8 mg/dL (0.6-1.3); POTASSIUM 4.6 mmol/L (3.5-5.1); TOTAL BILIRUBIN 0.2 mg/dL (<0.1-1.0)
--- NOTE | 2021-10-19 04:20 | NUR ---
DR PENDLETON UPDATED ON TROPONIN. EKG OBTAINED. VSS. PT IS CHEST PAIN FREE, SKIN WARM/DRY, RESPIRATIONS EVEN AND UNLABORED.
[2021-10-19 04:30] VITALS: BP 119/65
[2021-10-19 07:22] VITALS: BP 119/65
[2021-10-19 08:00] VITALS: BP 124/70
--- NOTE | 2021-10-19 11:09 | EKG ---
[place] [address] ELECTROCARDIOGRAM REPORT Name: ANNIE SILVEIRA Room: [address] ADM IN .R.#: [id number] Admission: 10/17/21 Attend Phys: John Maria Discharge: Date of : 35 Date of Service: 10/19/21421 Report #: [id number] THIS REPORT FOR: //name// [facility] ED Test Date: 2021-10-19 Test Time: 04:22:27 Pat Name: ANNIE SILVEIRA Department: Room: [facility] Gender: F Merchandise Deliverer: GONZALES : 1935 Requested By: John Maria Order Number: [id number] MD: Sudhakar Pinzon Measurements Intervals [place] Rate: 66 P: 66 [place]: 200 QRS: -29 QRSD: 127 T: 242 QT: 486 QTc: 510 Interpretive Statements Sinus rhythm previous anterior infarction Compared to ECG 10/17/2021 09:19:33 Ventricular premature complex(es) no longer present Electronically Signed On 10-19-2021 11:09:23 CORK INSULATION SETTER by Sudhakar Pinzon [email or web address] <ELECTRONICALLY SIGNED> By: Sudhakar Pinzon MD, FAC 10/19/21 1109 0422 0422 Sudhakar Pinzon MD, [facility] /EPI
--- NOTE | 2021-10-19 16:07 | CON ---
[address] [address] CONSULTATION Name: ANNIE SILVEIRA Room: [address] IN M.R.#: [id number] Admission: 10/17/21 Attend Phys: Werner Zimmerman Discharge: Date of : 35 Report #: [id number] THIS REPORT FOR: cc: Marco Ha MD, Srinath MD Namin, Farid M. MD ~ DATE OF CONSULTATION: 10/18/2021 REASON FOR CONSULTATION: Anemia. HISTORY OF PRESENT ILLNESS: This is an 85-year-old female with history of ulcerative colitis who has had a colectomy in 2003 with ileostomy since the same time. The patient is well known to us as in 12/2017 we saw her in consult for melanotic output and anemia and she underwent upper endoscopy, which was unremarkable. The patient presented with shortness of air and found to have COVID pneumonia. Her blood tests reveal severe anemia requiring blood transfusion. Since blood transfusion, her hemoglobin has increased from mid 6s to mid 9s. She has a dark color output in her ostomy, which is bilious but per nursing this was tested and was negative for blood. The patient denies any nausea, vomiting or hematemesis. PAST MEDICAL HISTORY: Significant for history of ulcerative colitis, status post colectomy and ileostomy in 2003, hypothyroidism, chronic back pain, history of renal melanoma, restless leg syndrome, irregular heart rate, chronic pain requiring pain meds. ALLERGIES: SIGNIFICANT TO MORPHINE. MEDICATIONS: Please refer to MAR. SOCIAL HISTORY: The patient denies tobacco or alcohol use. FAMILY HISTORY: Negative for GI malignancy. PHYSICAL EXAMINATION: GENERAL: Reveals generalized weakness and mild respiratory distress. LUNGS: Diminished breath sounds and crackles at the bases. CARDIOVASCULAR: Regular rate. ABDOMEN: Soft. Bowel sounds are positive. Ileostomy in place. LABORATORY DATA: Reveals sodium of 142, potassium 4.3, BUN is 23, creatinine 2.5, alk phos is 79, ALT is 15, AST is 17. WBC is 3.0, hemoglobin 9.4 [place] [address] CONSULTATION Name: ANNIE SILVEIRA Room: [address] IN [facility]#: [id number] Admission: 10/17/21 Attend Phys: Werner Zimmerman Discharge: Date of : 35 Report #: [id number] 6.8. The patient's baseline is usually 10-11. Platelet count is 204. CHEST X-RAY: Diffuse pulmonary interstitial changes, which appear chronic. ASSESSMENT AND PLAN: The patient presents with shortness of air, found to have COVID pneumonia for which she is receiving treatment. She also found to be anemic with hemoglobin of 6.8, status post transfusion and her hemoglobin is 9.4. She had dark bilious output out of her ileostomy, which per nursing was negative for heme. We will continue monitoring her H and H. Meanwhile, she can be on Protonix and have regular diet. She had upper endoscopy in 12/2017 for the same reason, which was unremarkable. If her hemoglobin drops or there is evidence of bleeding, we will consider endoscopy. Otherwise, she may benefit from capsule endoscopy. <ELECTRONICALLY SIGNED> By: Bon Bates MD 10/19/21 1607 1200 [id number] Bates MD /nt
--- NOTE | 2021-10-19 18:34 | NUR ---
CM ASSESSMENT ASSESSMENT COMPLETED WITH SNEHA SILVEIRA - [phone]. PT LIVES AT [facility] IN [place]. PT USES A WALKER. MR. SILVEIRA NOT ABLE TO REPORT ON SKILLED, REHAB OR HH HX. PT TO RETURN TO [facility] UPON DC. CM TO FOLLOW.
--- NOTE | 2021-10-19 19:52 | NUR ---
Patient remains confused throughout my shift. report was given to kim at 1730.
[2021-10-19 20:10] VITALS: BP 125/71
[2021-10-20] VITALS (7 sets, daily range): BP systolic 108–129; BP diastolic 49–68
[2021-10-20 04:28] LABS: ABSOLUTE LYMPHOCYTES 1.2 thou/uL (0.8-5.3); ABSOLUTE MONOCYTES 0.3 thou/uL (0.0-1.2); ABSOLUTE NEUTROPHILS 2.6 thou/uL (1.6-8.1); BASOPHILS 0.1 %; HEMATOCRIT 27.4 % (37.0-47.0); HEMOGLOBIN 8.8 gm/dL (12.0-15.0); LYMPHOCYTES 29.5 %; MCH 29.6 pg (26.0-34.0); MCV 92.3 fL (80.0-100.0); MONOCYTES 8.1 %; MPV 6.5 fl. (7.2-11.1); NUCLEATED RBCS 0 /100WBC; PLATELET COUNT* 182 thou/uL (150-400); POLYS 62.3 %; RBC 2.97 mil/uL (4.20-5.00); RDW-CV 16.3 % (10.5-14.5); WBC 4.2 thou/uL (4.0-11.0)
[2021-10-20 05:05] LABS: ALBUMIN 2.3 g/dL (3.4-5.0); CALCIUM 7.7 mg/dL (8.5-10.1); POTASSIUM 4.7 mmol/L (3.5-5.1); TOTAL BILIRUBIN 0.2 mg/dL (<0.1-1.0); TOTAL PROTEIN 4.9 g/dL (6.4-8.2)
--- NOTE | 2021-10-20 05:48 | NUR ---
PATIENT ALERT TO SELF. COOPERATIVE WITH CARES. ASSIST TO BSC WITH GAIT BELT FOR VOIDS. FALL PRECAUTIONS IN PLACE. MEDS WITH PUDDING. POOR ORAL FLUID INTAKE. ILEOSTOMY APPLIANCE INTACT WITH 250 ML OUTPUT. VITAL SIGNS STABLE ON ROOM AIR. NO STATED OR OBSERVED DISTRESS REALATED TO BREATHING OR CHEST DISCOMFORT. ELEVATED TROPONIN RESULTS SENT OT PHYSISICAN THIS AM AT 0545. CONTINUE TO MONITOR.
--- NOTE | 2021-10-20 10:41 | EKG ---
[place] [address] ELECTROCARDIOGRAM REPORT Name: ANNIE SILVEIRA Room: [address] ADM IN M.R.#: [id number] Admission: 10/17/21 Attend Phys: John Maria Discharge: Date of : 35 Date of Service: 10/20/21604 Report #: [id number] THIS REPORT FOR: //name// [facility] Test Date: 2021-10-20 Test Time: 06:05:58 Pat Name: ANNIE SILVEIRA Department: Room: [address] Gender: F Hammer Repairer: ANA MARÍA : 1935 Requested By: Sudhakar Pinzon Order Number: [id number] Chaparro MD: Brigido Rider Measurements Intervals [place] Rate: 73 P: 51 WI: 199 QRS: -19 QRSD: 125 T: 185 QT: 463 QTc: 511 Interpretive Statements Sinus rhythm Nonspecific interventricular conduction delay Anteroseptal infarct, old, possible Nonspecific T wave abnormality compared to ECG 10/19/2021 04:22:27 Left bundle-branch block now present Myocardial infarct finding no longer present Electronically Signed On 10-20-2021 10:41:44 LOG CHECK SCALER by Brigido Rider [email or web address] <ELECTRONICALLY SIGNED> By: Brigido Rider MD, FACC 10/20/21 1041 06 06 Brigido Rider MD, FACC /EPI
--- NOTE | 2021-10-20 13:33 | NUR ---
MD informed of troponin 8332 trending down from 9586.
--- NOTE | 2021-10-20 14:59 | NUR ---
New orders recieved for Echocardiogram
--- NOTE | 2021-10-20 16:16 | NUR ---
CM FOLLOWUP PT NOT MED CLEAR. PT FROM [facility] ([phone]), BUT RE-REFERRAL IS NEEDED TO HAVE PT RETURN AFTER 72 HOURS. REFERRAL SUBMITTED. CM TO FOLLOW FOR DC PLANNING.
--- NOTE | 2021-10-20 16:24 | 2DMMODE ---
[place] [address] 2 D/M-MODE ECHOCARDIOGRAM Name: ANNIE SILVEIRA Room: [address] ADM IN .R.#: [id number] Admission: 10/17/21 Attend Phys: John Maria Discharge: Date of : 35 Date of Service: 10/20/21 1624 Report #: [id number] THIS REPORT FOR: cc: Marco Ha MD, Srinath MD Liston,Brigido Barry MD [facility] ~ APPROVED REPORT Study performed: 10/20/2021 15:17:31 EXAM: Comprehensive 2D, Doppler, and color-flow Echocardiogram Patient Location: Bedside BSA: 1.67 HR: 65 bpm BP: 125/70 mmHg Other Information Study Quality: Adequate Indications Covid, Myocardial Infarction 2D Dimensions IVSd: 9.06 (7-11mm) LVOT Diam: 17.49 (18-24mm) LVDd: 45.42 mm PWd: 9.36 (7-11mm) Ascending Ao: 28.32 (22-36mm) LVDs: 38.24 (25-40mm) Aortic Root: 22.26 mm Volumes Left Atrial Volume (Systole) LA ESV Index: 28.70 mL/m2 Aortic Valve AoV Peak Bronson.: 1.02 m/s AO Peak Gr.: 4.19 mmHg LVOT Max P.78 mmHg AO Mean Gr.: 2.31 mmHg LVOT Mean P.84 mmHg LVOT Max V: 0.67 m/s AO V2 VTI: 22.21 cm LVOT Mean V: 0.42 m/s OTF (VTI): 1.61 cm2 LVOT V1 VTI: 14.89 cm Mitral Valve E/A Ratio: 0.64 [place] [address] 2 D/M-MODE ECHOCARDIOGRAM Name: SILVEIRAANNIE CHILDS Rahat Room: [address] IN .R.#: [id number] Admission: 10/17/21 Attend Phys: John Maria Discharge: Date of : 35 Date of Service: 10/20/21 1624 Report #: [id number] MV Decel. Time: 242.42 ms MV E Max Bronson.: 0.48 m/s MV PHT: 70.30 ms MVA (PHT): 3.13 cm2 TDI E/Lateral E': 6.00 E/Medial E': 12.00 Medial E' Bronson.: 0.04 m/s Lateral E' Bronson.: 0.08 m/s Pulmonary Valve PV Peak Bronson.: 0.76 m/s PV Peak Gr.: 2.30 mmHg Tricuspid Valve RAP Estimate: 20.00 mmHg TR Peak Gr.: 26.10 mmHg RVSP: 46.10 mmHg PA Pressure: 46.10 mmHg Left Ventricle The left ventricle is normal size. There is severe left ventricular systolic dysfunction with global hypokinesis and basilar wall sparing in a pattern of stress-induced cardiomyopathy. There is normal left ventricular wall thickness. Left ventricular systolic function is severely decreased. LVEF is 25-30%. Grade I - abnormal relaxation pattern. Right Ventricle The right ventricle is normal size. The right ventricular systolic function is normal. Atria The left atrium size is normal. The right atrium size is normal. Aortic Valve The aortic valve is normal in structure. No aortic regurgitation is present. There is no aortic valvular stenosis. Mitral Valve Mitral valve leaflets are thickened. Moderate mitral regurgitation. No evidence of mitral valve stenosis. Tricuspid Valve The tricuspid valve is normal in structure. Trace tricuspid regurgitation. Mild pulmonary [place] [address] 2 D/M-MODE ECHOCARDIOGRAM Name: ANNIE SILVEIRA Room: [address] IN [facility]#: [id number] Admission: 10/17/21 Attend Phys: John Maria Discharge: Date of : 35 Date of Service: 10/20/21 1624 Report #: [id number] Pulmonic Valve The pulmonary valve is normal in structure. Mild pulmonic regurgitation. Great Vessels The aortic root is normal in size. IVC is dilated. Pericardium There is no pericardial effusion. Left pleural effusion. <Conclusion> The left ventricle is normal size. There is normal left ventricular wall thickness. Left ventricular systolic function is severely decreased. LVEF is 25-30%. Grade I - abnormal relaxation pattern. There is severe left ventricular systolic dysfunction with global hypokinesis and basilar wall sparing in a pattern of stress-induced cardiomyopathy. Trace tricuspid regurgitation. Mild pulmonary hypertension. IVC is dilated. Left pleural effusion. <ELECTRONICALLY SIGNED> By: Brigido Rider MD, FACC 10/20/21 1624 1624 1624 Brigido Rider MD, FACC /INF
[2021-10-21] VITALS: BP 107/61
[2021-10-21 04:00] VITALS: BP 126/66
--- NOTE | 2021-10-21 05:42 | NUR ---
PT STABLE, REMAINS FREE FROM INJURY. VITALS WNL. CONTINUE TO BE RA. DENIES PAIN.
[2021-10-21 07:37] LABS: ABSOLUTE MONOCYTES 0.3 thou/uL (0.0-1.2); ABSOLUTE NEUTROPHILS 2.5 thou/uL (1.6-8.1); BASOPHILS 0.1 %; EOSINOPHILS 0.1 %; HEMATOCRIT 27.3 % (37.0-47.0); HEMOGLOBIN 8.7 gm/dL (12.0-15.0); MCH 29.5 pg (26.0-34.0); MCHC 31.8 g/dL (28.0-37.0); MCV 92.9 fL (80.0-100.0); MONOCYTES 8.8 %; MPV 6.6 fl. (7.2-11.1); NUCLEATED RBCS 0 /100WBC; PLATELET COUNT* 172 thou/uL (150-400); RBC 2.94 mil/uL (4.20-5.00); RDW-CV 16.4 % (10.5-14.5); WBC 3.8 thou/uL (4.0-11.0)
[2021-10-21 07:54] LABS: ALBUMIN 2.3 g/dL (3.4-5.0); CREATININE 2.2 mg/dL (0.6-1.3); POTASSIUM 5.2 mmol/L (3.5-5.1); TOTAL BILIRUBIN 0.2 mg/dL (<0.1-1.0); TOTAL PROTEIN 4.9 g/dL (6.4-8.2)
[2021-10-21 08:00] VITALS: BP 125/64
--- NOTE | 2021-10-21 09:59 | NUR ---
informed the patient is very aggressive this morning. yelling she wants to go home, refused her medication, throwing things at staff. attempted to call both contacts no response. she threw her phone in the room. she has a skin tear to left forearm. area cleaned and optifoam placed.
--- NOTE | 2021-10-21 12:48 | CON ---
[address] [address] CONSULTATION Name: ANNIE SILVEIRA Room: [address] IN .R.#: [id number] Admission: 10/17/21 Attend Phys: Werner Zimmerman Discharge: Date of : 35 Report #: [id number] THIS REPORT FOR: cc: Marco Ha MD, Srinath MD Blick,Sudhakar Juarez MD [facility] ~ DATE OF CONSULTATION: 10/19/2021 CARDIOLOGY CONSULTATION HISTORY OF PRESENT ILLNESS: The patient is an 85-year-old female who I was asked to see in the hospital today because of elevated troponin. The history was taken from the patient. There is no family members available. Some old records available. The patient has dementia and is confused at this time. She was actually admitted here in 2018 with chest pain. She apparently had a stress test at that time and was sent home. The patient was brought to the Emergency Room 2 days ago, complaining of congestion, short of breath and a fever. Ambulance brought her from the snf. She did not have an elevated troponin. Cardiology consultation was requested. PAST MEDICAL HISTORY: She has had a previous colostomy for ulcerative colitis. She has restless legs syndrome. MEDICATIONS: In the snf consist of Lasix, Protonix, propafenone, Flomax, Neurontin, Synthroid, amlodipine, aspirin, Eliquis. SOCIAL HISTORY: Cannot be obtained. FAMILY HISTORY: Cannot be obtained. REVIEW OF SYSTEMS: Chart reveals no previous history of a stroke, kidney disease or cancer. PHYSICAL EXAMINATION: GENERAL: Revealed an elderly, frail-appearing female who is mumbling throughout the examination. VITAL SIGNS: She had a blood pressure 120/60, pulse 70. She is afebrile. HEENT: She was anicteric. Conjunctivae pink. Mucous membranes appear dry. CHEST: Clear to auscultation. HEART: Regular rate and rhythm. ABDOMEN: Soft. EXTREMITIES: Had no edema. SKIN: Cool and dry. NEUROLOGIC: [place] [address] CONSULTATION Name: ANNIE SILVEIRA Room: [address] IN ..#: [id number] Admission: 10/17/21 Attend Phys: Werner Zimmerman Discharge: Date of : 35 Report #: [id number] LABORATORY DATA: ECG shows a sinus rhythm with nonspecific intraventricular conduction defect, occasional PVC, nonspecific T-wave changes. The patient actually had a stress echocardiogram performed here at [facility] in 2018 using dobutamine that showed no evidence of ischemia with an ejection fraction 65%. She had a portable chest x-ray on admission which showed cardiomegaly, otherwise clear lung ling. Her lab work, sodium 143, creatinine 1.8. Liver function studies were normal. High sensitivity troponin 1844. BNP 1219 on admission, her hematocrit was only 21. She received a transfusion. Her COVID antigen stat test was positive. IMPRESSION AND RECOMMENDATIONS: 1. COVID-19 pneumonia. 2. Non-ST elevation myocardial infarction. Recommend conservative approach. 3. Hypertension. The patient is on a calcium misael. 4. History of Eliquis use. Suspect previous history of atrial fibrillation. Because of anemia, I would consider discontinuing. 5. Anemia. No obvious bleeding. 6. Dementia. <ELECTRONICALLY SIGNED> By: Sudhakar Pinzon MD, FACC 10/21/21 1248 1132 [id number] Pinzon MD, FACC /nt
--- NOTE | 2021-10-21 14:13 | NUR ---
CM FOLLOWUP PT NOT MED CLEAR. CM IN CONTACT WITH [facility] STAFF (ZARINA) REGARDING PT RETURN. ZARINA LEFT A VOICEMAIL INDICATING PT MAY RETURN TOMORROW, 10/22/21 IF NOT IN NEED OF SKILLED SERVICES. ZARINA REQUESTED A RETURN CALL TO [facility] PT [facility]. CM RETURNED CALL BUT WAS ONLY ABLE TO LEAVE A VOICEMAIL. CM REFERRED PT BACK TO [facility]. CM TO FOLLOW.
[2021-10-21 20:00] VITALS: BP 128/59
[2021-10-22 00:34] VITALS: BP 118/59
[2021-10-22 04:36] VITALS: BP 138/61
[2021-10-22 04:42] LABS: ABSOLUTE LYMPHOCYTES 0.8 thou/uL (0.8-5.3); ABSOLUTE MONOCYTES 0.1 thou/uL (0.0-1.2); BASOPHILS 0.1 %; HEMATOCRIT 28.8 % (37.0-47.0); HEMOGLOBIN 9.3 gm/dL (12.0-15.0); LYMPHOCYTES 19.8 %; MCHC 32.4 g/dL (28.0-37.0); MCV 92.6 fL (80.0-100.0); MONOCYTES 3.4 %; MPV 7.3 fl. (7.2-11.1); NUCLEATED RBCS 0 /100WBC; PLATELET COUNT* 192 thou/uL (150-400); POLYS 76.7 %; RBC 3.11 mil/uL (4.20-5.00); RDW-CV 16.1 % (10.5-14.5); WBC 3.9 thou/uL (4.0-11.0)
--- NOTE | 2021-10-22 04:43 | NUR ---
ASSUMED CARE OF PT AFTER REPORT AT 1930. PT A&OX1. VSS. PHYSICAL ASSESSMENT COMPLETED AND CHARTED. PT ON RA. PT TRACING SR ON TELE. PT UPSTANDBY TO BSC. PT ABLE TO SLEEP WELL ON BED. FALL PRECAUTIONS IN PLACE. CALL LIGHT WITHIN REACH.
[2021-10-22 06:41] LABS: ESR (SEDRATE) 15 mm/hr (0-30)
[2021-10-22] MEDS ORDERED: CARVEDILOL3.125 MG PO (06:45)
[2021-10-22] MEDS ORDERED: LIPITOR 40 MG T40 M1 PO (06:45)
[2021-10-22 08:29] LABS: PREALBUMIN 26.7 mg/dL (18.0-35.7)
[2021-10-22 08:37] LABS: ALBUMIN 2.7 g/dL (3.4-5.0); ALKALINE PHOSPHATASE 73 U/L (46-116); ANION GAP 13 mmol/L (7-16); BUN 41 mg/dL (7-18); CALCIUM 8.3 mg/dL (8.5-10.1); CHLORIDE 110 mmol/L (98-107); CHOLESTEROL 153 mg/dL (<200); CO2 22 mmol/L (21-32); CREATININE 2.1 mg/dL (0.6-1.3); GLUCOSE 96 mg/dL (70-99); HDL CHOLESTEROL 77 mg/dL (>40); LDL CHOLESTEROL 58 mg/dL (<100); POTASSIUM 4.8 mmol/L (3.5-5.1); SGOT 30 U/L (15-37); SGPT 19 U/L (30-65); SODIUM 145 mmol/L (136-145); TOTAL BILIRUBIN 0.3 mg/dL (<0.1-1.0); TOTAL PROTEIN 5.6 g/dL (6.4-8.2); TRIGLYCERIDE 90 mg/dL (<150); VLDL 18 mg/dL (<40)
[2021-10-22 08:38] LABS: SERUM ASSESSMENT Clear
[2021-10-22 09:00] VITALS: BP 143/79
[2021-10-22 12:00] VITALS: BP 143/75
[2021-10-22] MEDS ORDERED: IMDUR 30 MG TAB30 M1 PO (12:35)
[2021-10-22] MEDS ORDERED: COREG6.25 MG PO (12:35)
--- NOTE | 2021-10-22 17:48 | NUR ---
CM FOLLOWUP PT DC'D BACK TO [facility] [phone]. PT TRANSPORTED BY [employer] [phone]. PT DC'D WITH HH PROVIDED BY [facility] ([phone]).
--- NOTE | 2021-10-22 18:20 | NUR ---
.PT. ALERT, CONFUSED, ON FALL PRECAUTIONS. CALL LIGHT AND PERSONAL BELONGINGS PLACED WITHIN REACH. DC ORDERS RECEIVED. UNABLE TO REACH RN AT [facility], LEFT WITH CALL BACK NUMBER. L FOREARM DRESSING INTACT, DRY DRAINAGE, PT. COMBATIVE WHEN ATTEMPTING TO DOCUMENT DISCHARGE WOUNDS. PT. LEFT BY WHEELCHAIR, IN STABLE CONDITION AT TIME OF DC
== END 2021-10-22 17:22 | disposition home health service (06) | DRG 177 ==
LOC: M.ERS 09:12 → M.ORTHSURG 11:19 → M.TBA-ER 11:19 → M.ORTHSURG 10-19 07:39
PROVIDERS: Emergency Medicine; Internal Medicine; Internal Medicine Cardiovascular Disease; Internal Medicine Gastroenterology; ADMIT Internal Medicine; ATTEND Internal Medicine
DX: U07.1 COVID-19 (principal); J96.01 Acute respiratory failure with hypoxia; J12.82 Pneumonia due to coronavirus disease 2019; I21.4 Non-ST elevation (NSTEMI) myocardial infarction; G92.9 Unspecified toxic encephalopathy; K92.2 Gastrointestinal hemorrhage, unspecified; N17.9 Acute kidney failure, unspecified; D62 Acute posthemorrhagic anemia; I51.81 Takotsubo syndrome; G25.81 Restless legs syndrome; D64.9 Anemia, unspecified; E86.0 Dehydration; D70.9 Neutropenia, unspecified; N18.9 Chronic kidney disease, unspecified; I51.7 Cardiomegaly; M81.0 Age-related osteoporosis without current pathological fracture; E03.9 Hypothyroidism, unspecified; F03.90 Unspecified dementia, unspecified severity, without behavioral disturbance, psychotic disturbance, mood disturbance, and anxiety; F41.9 Anxiety disorder, unspecified; D75.9 Disease of blood and blood-forming organs, unspecified; Z93.2 Ileostomy status; Z79.82 Long term (current) use of aspirin; Z79.899 Other long term (current) drug therapy; Z90.49 Acquired absence of other specified parts of digestive tract